=== PATIENT | male | born 2005 | race Two or more races ===

== ENCOUNTER 2024-09-29 20:51 | Emergency (ER) | payer MEDICAID, SELFPAY ==
[2024-09-29 21:11] VITALS: BP 124/83; PULSE 97; RESP 16; TEMP 37.2; O2SAT 97; BMI 32.5
--- NOTE | 2024-09-29 21:24 | PD.EDNV ---
Nausea/Vomit./Diarrhea-RME/HPI General Chief complaint: Flu Like Symptoms Stated complaint: HEADACHE, BODYACHE, FEVER, NAUSEA Time Seen by Provider: 09/29/24 21:10 Source: patient and family Arrival date/time: 09/29/24 20:51 18-year-old male presents to ED with a complaint of nausea without vomiting with diarrhea up to 3 times per day x 2 days. Patient had a tactile fever. Mode of arrival: ambulatory Limitations: no limitations RME / HPI MD complaint: nausea, vomiting (No vomiting), diarrhea (3 times per day x 2 days) and abdominal pain Onset (ago): day(s) (2) Description of Diarrhea: water Associated Abdominal Pain: Yes Location of pain: diffuse Related Data Home Medications ?Medication ?Instructions ?Recorded ?Confirmed loratadine 10 mg tablet 10 mg PO QDAY 05/14/19 06/12/19 fluticasone propionate 220 1 puff inhalation BID 06/12/19 06/12/19 mcg/actuation HFA aerosol inhaler (Flovent HFA) Previous Rx's ?Medication ?Instructions ?Recorded albuterol sulfate 90 mcg/actuation 2 puff inhalation QID PRN 05/16/19 aerosol inhaler (Ventolin HFA) shortness of breath or wheezing #8.5 grams mometasone-formoterol HFA 200 2 puff inhalation Q12H #8.8 grams 05/16/19 mcg-5 mcg/actuation aerosol inhaler (Dulera) acetaminophen 650 mg 650 mg PO Q8H PRN fever or pain 06/12/19 tablet,extended release #30 tabs ibuprofen 600 mg tablet 600 mg PO Q8H PRN fever or pain 06/12/19 #30 tabs ondansetron HCl 4 mg tablet 4 mg PO Q8H PRN nausea and 09/29/24 vomiting #20 tabs Allergies Allergy/AdvReac Type Severity Reaction Status Date / Time No Known Allergies Allergy Verified 09/29/24 20:52 Review of Systems Constitutional Constitutional: Reports system reviewed and no additional complaints, except as documented Eyes Eyes: Reports system reviewed and no additional complaints, except as documented, Denies dry eyes, Denies exophthalmos and Reports floaters Cardiovascular Cardiovascular: Denies chest pain with activity and Denies claudication ED Exam Narrative Physical exam: The abdomen was soft mildly tender without any apparent masses, negative for rebound tenderness, there is no guarding present. Bowel sounds are hyperactive. Lungs clear to auscultation. Heart regular rhythm and rate. General Limitations: Present no limitations General appearance: Present alert and in no apparent distress Head Head exam: Present atraumatic Eye Eye exam: Present normal appearance and EOMI ENT ENT exam: Present normal exam, normal oropharynx and mucous membranes moist Neck Neck exam: Present normal inspection, full ROM and trachea midline Chest Chest inspection: Present normal inspection and symmetric chest wall rise Respiratory Respiratory exam: Present normal lung sounds bilaterally Cardiovascular Cardiovascular exam: Present regular rate, normal rhythm and normal heart sounds Abdominal Exam Abdominal exam: Present soft and hyperactive bowel sounds Extremities Exam Extremities exam: Present normal inspection and full ROM Back Exam Back exam: Present normal inspection and full ROM Neurological Exam Neurological exam: Present alert, oriented X3 and CN II-XII intact Psychiatric Psychiatric exam: Present normal affect and normal mood Skin Skin exam: Present warm, dry, intact and normal color Course Course Course Narrative: Patient will have Zofran 4 mg and approximately 15 minutes later he will have a p.o. challenge. Quality Measures none Orders Category Date Time Status Fluid challenge administration PRN Care 09/29/24 21:21 Active Ondansetron Odt [Zofran Odt] Med 09/29/24 21:21 Discontinued 4 mg PO X1 ONE Done Vital Signs Vital signs: Vital Signs Temperature 98.9 F 09/29/24 21:11 Pulse Rate 97 09/29/24 21:11 Respiratory Rate 16 09/29/24 21:11 Blood Pressure 124/83 09/29/24 21:11 Pulse Oximetry (%) 97 09/29/24 21:11 Oxygen Delivery Method Room Air 09/29/24 21:11 Pulse ox 97% room air normal Nausea/Vomiting/Diarrhea MDM Narrative MDM Narrative:: Patient will have for Zofran and he will get a p.o. fluid challenge. Upon passing this test he will be discharged in no apparent distress with a prescription for Zofran. He is then to follow-up primary care physician within a week or sooner of this visit. Patient data External records reviewed:: Other (specify) Clinical information provided by:: none Social determinants that could affect healthcare access:: none Patient has the following chronic illnesses:: None How is presenting disease/condition affected by chronic disease/condition?: no chronic disease Evaluation data The following diagnostics were reviewed and interpreted by me:: other (specify) (Not applicable) Lab and/or radiology exams considered but not ordered:: None Interpretation Summary: N/A Medications / Prescriptions Medications / Prescriptions considered but not ordered:: None Medication administrations:: Medication Administration History Discontinued Medications Ondansetron HCl (Ondansetron Odt 4 Mg Tabrap) 4 mg PO X1 ONE; Protocol Stop: 09/29/24 21:22 Last Admin: 09/29/24 21:29 Dose: 4 mg Documented By: KF Done Consultations Consultation(s) initiated? (list below): No Diagnosis Nausea Differential Diagnosis: traveler's diarrhea, food poisoning and gastroenteritis Most likely diagnosis given after review of the tests above:: None Admission Indicated Admission indicated?: not indicated Admission Request Was there a request for admission?: No Disposition Plan Disposition Plan: Discharge Discharge Attestation Discharge Attestation: The patient and all family members were given an opportunity to ask questions and understood the discharge instructions. Discharge instructions specifically effects, indications for sooner follow up or return to the emergency department, and the expected course of current diagnosis. Patient condition: Stable Discharge Plan Plan Patient Disposition: HOME (Self Care) Discharge Disposition comment: Patient will be discharged to home in no apparent distress Patient condition on transfer: Stable Prescriptions/Referrals Prescriptions/Med Rec: New ondansetron HCl 4 mg tablet 4 mg PO Q8H PRN (Reason: nausea and vomiting) Qty: 20 0RF No Action albuterol sulfate [Ventolin HFA] 90 mcg/actuation HFA aerosol inhaler 2 puff INH QID PRN (Reason: shortness of breath or wheezing) Qty: 8.5 0RF Dulera 200-5 mcg/actuation HFA aerosol inhaler 2 puff INH Q12H Qty: 8.8 0RF Flovent HFA 220 mcg/actuation HFA aerosol inhaler 1 puff INH BID acetaminophen 650 mg tablet extended release 650 mg PO Q8H PRN (Reason: fever or pain) Qty: 30 0RF Rx Instructions: swallow whole; do not crush, chew, break, dissolve, cut, or open ibuprofen 600 mg tablet 600 mg PO Q8H PRN (Reason: fever or pain) Qty: 30 0RF Rx Instructions: prn pain / fever loratadine 10 mg Tablet 10 mg PO QDAY Referrals: No Primary/Family,Physician [Primary Care Provider] - In 1 week Problem List Clinical Impression: Viral infection Patient/Caregiver Discharge Instructions Education Materials: ED Viral Syndrome (Adult) Print Language: Luxembourger Stand Alone Forms: [employer] Award Info., Patient Portal Info Letter PA/GLEASON GEAR GENERATOR Supervising Physician PA/GLEASON GEAR GENERATOR Supervising Physician: Juan Kerr
[2024-09-29] MEDS: ONDANSETRON ODT 4 MG TABRAP PO (21:29)
== END 2024-09-29 23:24 | disposition home or self-care (01) ==
PROVIDERS: Emergency Provider Emergency Medicine
DX: B34.9 Viral infection, unspecified (principal)
CPT/HCPCS: 99282; Q0162